=== PATIENT | female | born 1955 ===

== ENCOUNTER 2022-10-24 12:41 | Emergency (ER) | payer MEDICAID, SELFPAY ==
--- NOTE | 2022-10-24 12:54 | ED.GENADULT ---
HPI - General Adult General Chief complaint: Upper Respiratory Symptoms Stated complaint: sore throat fever head and body aches Time Seen by Provider: 10/24/22 16:31 Source: patient, RN notes reviewed and old records reviewed Mode of arrival: ambulatory History of Present Illness HPI narrative: 67 yo [place] ar[place]ian speaking female with a history of HTN, sinus infections, seasonal allergies presents with daughter to the ED with sore throat, LYN, and fever x12 days. Daughter reports that they recently traveled from [place] 2 weeks ago to visit family and grandchildren when she developed sore throat with painful swallowing. Reports yellow phlegm coming out of her throat. She then developed headaches and fever with the highest reading of 102F taken last night orally. Fevers have improved with OTC Ibuprofen and Tylenol. She's also been doing salt water gargles, turmeric, and throat lozenges without any relief. She is tolerating solids and liquids. Vaccinations UTD. Denies sick contacts or recent antibiotic use. Denies dizziness, ear pain or drainage, rhinorrhea, nasal congestion, vision changes, SOB, chest pain, abd pain, N/V/D. Onset (ago): day(s) Related Data Previous Rx's Medication Instructions Recorded penicillin V potassium 500 mg 500 mg PO BID 10 days #20 tabs 10/24/22 tablet Allergies Allergy/AdvReac Type Severity Reaction Status Date / Time No Known Allergies Allergy Verified 10/24/22 12:59 Review of Systems Review of Systems: Constitutional: +Fever, No Chills ENT/Mouth: No Ear Pain, No Nasal Congestion, + frontal Sinus Pain, No Hoarseness, +sore throat, No Rhinorrhea, no Swallowing Difficulty Cardiovascular: No Chest Pain, No SOB Respiratory: No Cough, + yellow Sputum, No Wheezing Gastrointestinal: No Nausea, No Vomiting, No Diarrhea, No Constipation, No Abdominal pain Genitourinary: No Dysuria, No Urinary Frequency, No Hematuria, No Urinary Incontinence/retention, No Urgency, No Flank Pain Musculoskeletal: No joint pain, No Myalgias, No Joint Swelling Skin: No Skin Lesions, No rash Yes all other systems are reviewed and are negative Constitutional: Constitutional: Reports as per [facility] Past Medical History Attestation statement: The following information was validated with the patient. Source: old records reviewed Social History Social History Smoked in Last 30 Days: No Use of substances other than those prescribed or required for medical reasons: No Advance Directives: No Advance Directives Information Provided: Yes Physical Exam ED Vital Signs: Vital Signs - 24 hr 10/24/22 12:56 10/24/22 17:48 Temperature 97.4 F 97.7 F Pulse Rate 69 67 Respiratory Rate 18 16 Blood Pressure 119/52 L Pulse Oximetry 98 97 Oxygen Delivery Method Room Air Room Air BMI result Body Mass Index 31.0 Const General: cooperative, healthy appearing, no acute distress, alert and awake Orientation/consciousness: patient oriented x3 Limitations: no limitations HENMT Head: Yes normal to inspection, Yes normocephalic and Yes atraumatic Ears: hearing grossly normal bilaterally, external ears normal, TM's normal bilaterally and mastoids normal General nose exam: Normal external nose present, Normal nares present and No nasal discharge present Face and sinus: Yes sinus tenderness (Bilateral frontal sinus tenderness to palpation) Mouth: Normal oral and palatal mucosa present, tongue normal, moist mucous membranes, no drooling and no muffled voice Throat: Yes tonsils normal, Yes uvula midline, No peritonsillar mass, No uvula laterally displaced, No uvular edema and Yes other (Erythema of the posterior oropharynx without exudates or edema ) Eyes General: appearance normal, both eyes and all related structures Conjunctivae: conjunctivae normal Sclerae: sclerae normal EOM: EOMs intact bilaterally Neck Neck: Yes normal visual inspection, No anterior neck swelling and Yes lymphadenopathy (Bilateral submandibular lymphadenopathy) Resp Effort & Inspection: normal respiratory effort, able to speak in complete sentences and no respiratory distress Auscultation: clear to auscultation bilaterally, no rales, no rhonchi and no wheezes Cardio Rate: regular rate Rhythm: regular rhythm Heart sounds: S1 normal heart sound present and S2 normal heart sound present GI Palpation (GI): Soft to palpation, nontender and no guarding Skin Lesions: no lesions Rashes: no rashes Wounds: no wounds Neuro General: patient oriented x3 and tone normal Gait exam (Neuro): Normal gait present Extrem General: Yes normal to inspection Course Course Course Narrative: This is a rapid medical exam: Additional HPI, ROS, PE not included below will be deferred to primary provider. Patient is a 67-year-old [place]olese-speaking female presenting to the emergency department with her daughter who reports that patient has had a sore throat for approximately 10 days and fever at night for the past 5 days. Took a Covid test which was negative. Tried taking Dayquil. Also complaining of sinus pressure and has history of frequent sinus infections. Denies cough. Patient is visiting from [place] for the next month. Erythema to posterior oropharynx. No cervical lymphadenopathy. Plan: swab for strep, flu, Covid Medical Decision Making Medical Decision Making [facility] Narrative: 67 yo [place] ar[place]ian speaking female with a history of HTN, sinus infections, seasonal allergies presents with daughter to the ED with sore throat, LYN, and fever x 12 days. Vitals are stable, afebrile. She is nontoxic appearing and NAD. Handling secretions, no apparent distress, talking in complete sentences. Oral mucosa is moist with erythema in the posterior oral pharynx without edema or exudate noted. Uvula is midline. DDX includes strep pharyngitis vs viral syndrome. No evidence of [employer], unlikely retropharyngeal abscess. Low suspicion for pneumonia/bronchitis Plan: COVID-19/flu testing, rapid strep -COVID and flu negative. Strep positive. Results discussed with patient including worrisome signs and symptoms and strict return precautions, and when to return to the emergency department. They verbalized understanding and feel safe for discharge at this time. Differential Diagnosis Differential Diagnoses: The differential diagnosis associated with the presentation includes As above Lab Data [facility] Lab Attestation statement: I reviewed the patient's lab results. Labs: Lab Results 10/24/22 10/24/22 10/24/22 Range/Units 15:33 15:33 16:27 COVID-19 (HIRO) Negative (Negative) COVID-19 Clin Com See Note Influenza Type A (MITZY) Negative (Negative) Influenza Type B (MITZY) Negative (Negative) Influenza A & B Note See Note S. pyogenes GrpA MITZY Positive A (Negative) Independent Historian Clinical information obtained from an independent historian. History obtained from or confirmed by: Other (Daughter) External Record Review External record reviewed: Inpatient record, Office record, Outpatient record, Prior outpatient labs, Prior outpatient radiology, Primary care record and Outside ED record Tests considered The following testing was considered but not selected: As above Prescription Management I considered prescription management with: Pain Medication and Antibiotic Discharge Plan Discharge Clinical Impression: Acute streptococcal pharyngitis Patient Disposition: Home, Self-Care Instructions: Strep Throat (DC) Additional Instructions: You have strep throat. Penicillin is an antibiotic please take as prescribed Continue to monitor her temperatures closely. Take Tylenol for fever control Gargle with warm salt water If symptoms persist or worsen/become unbearable return to the ED Your contagious for 24 hours until on antibiotics avoid sharing food/utensils or drinks Prescriptions: New penicillin V potassium 500 mg tablet 500 mg PO BID 10 Days Qty: 20 0RF Referrals: Physician,Unknown J [Primary Care Provider] - Interventions: ED Discharge Assessment Last Done: 10/24/22 17:56 Discharge Date/Time: 10/24/22 17:57
[2022-10-24 12:56] VITALS: PULSE 69; RESP 18; TEMP 36.3; O2SAT 98; BMI 31.0
[2022-10-24 15:57] LABS: COVID-19 Test Negative (Negative); IDNOW Serial# 08D9AD1C
[2022-10-24 15:59] LABS: IDNOW Serial# BCCEAD1C; Influenza A Negative (Negative); Influenza B2 Negative (Negative)
[2022-10-24 17:05] LABS: IDNOW Serial# 08D9AD1C; Strep A Nucleic Acid Positive (Negative)
[2022-10-24 17:48] VITALS: BP 119/52; PULSE 67; RESP 16; TEMP 36.5; O2SAT 97
== END 2022-10-24 17:57 | disposition home or self-care (01) ==
PROVIDERS: Registered Nurse Emergency; Emergency Provider Emergency Medicine
DX: J02.0 Streptococcal pharyngitis (principal); R50.9 Fever, unspecified; M79.10 Myalgia, unspecified site; Z20.822 Contact with and (suspected) exposure to COVID-19; Z20.828 Contact with and (suspected) exposure to other viral communicable diseases
CPT/HCPCS: 87502; 87635; 87651; 99283; 99284